=== PATIENT | female | born 1965 | race Caucasian/White ===

== ENCOUNTER 2017-01-27 08:54 | Emergency (ER) | payer BC ==
[~2017-01-27] VITALS: Ht 162.6 cm; Wt 108.4 kg
[2017-01-27 10:58] LABS: ADD MIUA? YES; BILIRUBIN NEGATIVE; BLOOD NEGATIVE; COLOR AMBER ((YELLOW)); GLUCOSE (STRIP) NEGATIVE; KETONES NEGATIVE; LEUKOCYTES NEGATIVE; NITRITE POSITIVE; PROTEIN (STRIP) NEGATIVE; SPECIFIC GRAVITY 1.021 (1.000-1.030)
[2017-01-27 11:01] LABS: BACTERIA RARE /HPF; EPITHELIAL CELLS RARE /HPF; MUCUS TRACE /LPF; RED BLOOD CELLS NONE SEEN /HPF (0-5); UCUL ADDED? NO; WHITE BLOOD CELLS NONE SEEN /HPF (0-5)
[2017-01-27 11:36] LABS: HEMATOCRIT 42.6 % (36.0-46.0); MCH 28.3 PG (29.0-34.0); MCHC 32.4 G/DL (30.0-36.0); MCV 87.3 FL (83-99); MEAN PLAT.VOLUME 12.1 uM^3 (9.5-12.4); PLATELET COUNT 148 K/uL (156-360); RBC DIS.WIDTH-CV 13.3 % (11.8-14.6); RBC DIS.WIDTH-SD 42.5 % (39-53); RED BLOOD COUNT 4.88 M/uL (3.80-5.20); WHITE BLOOD COUNT 6.9 K/uL (4.1-10.2)
[2017-01-27 11:47] LABS: CHLORIDE 107 mEq/L (99-109); SODIUM 139 mEq/L (136-147)
[2017-01-27 11:50] LABS: GLUCOSE 172 mg/dL (70-99)
[2017-01-27 11:51] LABS: ANION GAP 6 MEQ/L (2-14)
[2017-01-27 11:52] LABS: TOTAL BILIRUBIN 0.5 mg/dL (0.0-1.0)
[2017-01-27 11:53] LABS: ALKALINE PHOSPHATASE 91 IU/L (3-129); GFR ESTIMATE (CALCULATED) > 59 mL/min/
[2017-01-27 11:55] LABS: UREA NITROGEN (BUN) 12 mg/dL (9-23)
[2017-01-27 12:00] VITALS: BP 124/66
[2017-01-27] MEDS ORDERED: CEFDINIR300 MG PO (13:15)
[2017-01-27] MEDS ORDERED: PYRIDIUM100 MG PO (13:16)
== END 2017-01-27 14:20 | disposition home or self-care (01) ==
LOC: EME 08:54
PROVIDERS: Emergency Medicine
DX: N39.0 Urinary tract infection, site not specified (principal); E11.9 Type 2 diabetes mellitus without complications; K21.9 Gastro-esophageal reflux disease without esophagitis; F41.9 Anxiety disorder, unspecified
CPT/HCPCS: 80053; 81003; 85027; 99281; 99285; J0696; J7030; J7050